=== PATIENT | female | born 1960 | race Caucasian/White ===

== ENCOUNTER 2017-01-17 10:45 | Emergency (ER) | payer SELFPAY ==
[~2017-01-17] VITALS: Ht 170.2 cm; Wt 122.0 kg
[~2017-01-17 10:45] MED LIST: CEPH500C PO; CLIN300C3; CPR500T; FLUC200T45 PO; HCT25T PO; HYDR-3583 PO; LEVO250T7 PO; LISI20TA PO; LNZ600T PO; NITR100C PO; NYST1000 PO; [UNRECOGNIZED DRUG - REMARK]
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
--- NOTE | 2017-01-17 11:46 | Diagnostic Imaging Report ---
EXAMINATION: Pelvis at 11:48 AM. INDICATION: Trauma, pelvic pain. A single AP view of the pelvis was obtained. FINDINGS: There is no fracture, dislocation or acute bony abnormality evident. There is moderate degenerative disease involving the hip and sacroiliac joints. The degenerative changes seem stable when compared to the prior exam of 06/18/2011. However, there does appear to be somewhat greater narrowing of the disc space at L4-5 than on the prior exam. Surgical clips are again seen overlying the right sacrum. The soft tissues are unremarkable. IMPRESSION: 1. There is no evidence for an acute bony abnormality. 2. The degenerative disc and bony disease at L4-5 does appear to have progressed since the prior exam. If further evaluation is desired, then MRI would be recommended. Dictated by: Dictated on workstation # [id number]
--- NOTE | 2017-01-17 11:48 | Diagnostic Imaging Report ---
EXAMINATION: Left ribs INDICATION: Trauma 3 views were obtained. There is no evidence for a displaced rib fracture on the left. There is no sign of an injury to the underlying left lung either. Specifically there is no pneumothorax. IMPRESSION: There is no evidence for a displaced rib fracture on the left. Dictated by: Dictated on workstation # [id number]
[2017-01-17 11:59] VITALS: BP 143/109
== END 2017-01-17 11:58 | disposition home or self-care (01) ==
LOC: EDUNIT# 10:45 → ER 10:47
DX: S30.0XXA Contusion of lower back and pelvis, initial encounter (principal); S80.211A Abrasion, right knee, initial encounter; W55.22XA Struck by cow, initial encounter; Y92.79 Other farm location as the place of occurrence of the external cause; Y99.8 Other external cause status
CPT/HCPCS: 71100; 72170; 99282

== ENCOUNTER → 2020-04-08 | Outpatient (CLI) | payer OTHER ==
[~2020-04-08] VITALS: Ht 172 cm; Wt 131.0 kg
[~2020-04-08] MED LIST changes: +LISI-552 PO; +LOVA20TA2 PO
== END | disposition home or self-care (01) ==
LOC: PREOP 05:57
PROVIDERS: ATTEND Surgery
DX: Z01.818 Encounter for other preprocedural examination (principal)

== ENCOUNTER 2020-04-12 06:02 | Day surgery (SDC) | payer OTHER ==
[~2020-04-12] VITALS: Ht 172 cm; Wt 131.0 kg
[2020-04-12] VITALS (11 sets, daily range): BP systolic 114–133; BP diastolic 60–86
[2020-04-12] MEDS ORDERED: CLINDAMYCIN 600 MG/50 ML IVPB 50 ML IV ONE (06:30)
[2020-04-12] MEDS ORDERED: MIDAZOLAM 2 MG/2 ML (VERSED) VIAL ONE (06:41)
[2020-04-12] MEDS ORDERED: fentaNYL INJECTION 100 MCG/2 ML AMP ONE ×2 (06:41→09:07)
[2020-04-12] MEDS ORDERED: LACTATED RINGERS 1,000 ML IV PRN (06:43)
[2020-04-12] MEDS ORDERED: FAMOTIDINE 20MG/2ML IV (PEPCID) IV ONE (06:45)
[2020-04-12] MEDS ORDERED: SCOPOLAMINE 1.5 MG (TRANSDERM-SCOP) PATCH TOP ONE (06:45)
[2020-04-12] MEDS ORDERED: ONDANSETRON 4 MG/2 ML (SDV) Z0FRAN IV ONE (06:45)
[2020-04-12] MEDS ORDERED: CATHETER FLUSH 10 ML SYR IV PRN (06:45)
[2020-04-12 06:48] LABS: BASOPHILS % (AUTO) 1 % (0-10); EOSINOPHILS # (AUTO) 0.2 10^3/uL (0.0-0.3); EOSINOPHILS % (AUTO) 4 % (0-10); HEMATOCRIT 41 % (35-52); HEMOGLOBIN 13.7 G/DL (11.5-16.0); LYMPHOCYTES # (AUTO) 1.9 X 10^3 (1.0-4.0); LYMPHOCYTES % (AUTO) 29 % (12-44); MEAN CORPUSCULAR HEMOGLOBIN 30 PG (25-34); MEAN CORPUSCULAR HGB CONC 34 G/DL (32-36); MEAN CORPUSCULAR VOLUME 89 FL (80-99); MEAN PLATELET VOLUME 9.6 FL (7.4-10.4); MONOCYTES # (AUTO) 0.6 X 10^3 (0.0-1.0); MONOCYTES % (AUTO) 10 % (0-12); NEUTROPHILS # (AUTO) 3.7 X 10^3 (1.8-7.8); NEUTROPHILS % (AUTO) 57 % (42-75); PLATELET COUNT 278 10^3/uL (130-400); RED CELL DISTRIBUTION WIDTH 13.2 % (10.0-14.5); WHITE BLOOD COUNT 6.4 10^3/uL (4.3-11.0)
[2020-04-12] MEDS: LACTATED RINGERS 1,000 ML IV PRN ×2 (07:04→08:33)
[2020-04-12] MEDS ORDERED: IOPAMIDOL 61% 30 ML (ISOVUE 300) VIAL ONE (07:21)
[2020-04-12] MEDS ORDERED: BUP/EPI 0.5% 1:200,000 (MARCAINE) 10ML VIAL IJ ONE ×2 (07:22→08:47)
--- NOTE | 2020-04-12 07:48 | Progress Note-Pre Operative ---
Pre-Operative Progress Note H&P Reviewed The H&P was reviewed, patient examined and no changes noted. Date Seen by Provider: Apr 12, 2020 Time Seen by Provider: 07:40 Date H&P Reviewed: Apr 12, 2020 Time H&P Reviewed: 07:40 Pre-Operative Diagnosis: symptomatic cholelithiasis TIN HINES DO Apr 12, 2020 07:48
[2020-04-12] MEDS ORDERED: ONDANSETRON 4 MG/2 ML (SDV) Z0FRAN ONE ×2 (08:31)
[2020-04-12] MEDS ORDERED: DESFLURANE (SUPRANE) 15 ML INHAL SOLN ONE ×11 (08:31→10:44)
[2020-04-12] MEDS ORDERED: LIDOCAINE PF 2% 5 ML (XYLOCAINE) VIAL ONE (08:32)
[2020-04-12] MEDS ORDERED: proPOfol 200 MG/20 ML (DIPRIVAN) VIAL IV ONE (08:32)
[2020-04-12] MEDS ORDERED: NEOSTIGMINE 3 MG/3 ML VIAL ONE (08:33)
[2020-04-12] MEDS ORDERED: GLYCOPYRROLATE 0.2 MG/ML (ROBINUL) 2 ML VIAL ONE (08:33)
[2020-04-12] MEDS ORDERED: ROCURONIUM 10 MG/ML 5 ML SYRINGE IV ONE ×2 (08:33→10:27)
[2020-04-12] MEDS ORDERED: DOCU-143 PO (10:47)
[2020-04-12] MEDS ORDERED: HYDR-4226 PO (10:47)
--- NOTE | 2020-04-12 10:48 | Discharge Inst-Simple/Standard ---
Discharge Inst-Standard Discharge Medications New, Converted or Re-Newed RX: RX on Chart Patient Instructions/Follow Up Plan of Care/Instructions/FU: 2-3 weeks Claude Activity as Tolerated: No Discharge Diet: Regular Diet Other Inst to Patient Follow up Appt: Make appointment for 2-3 weeks. Instructions: No lifting greater than 10 pounds. No strenuous activity. May shower in 24 hours, no tub bath or soaking. Use incentive spirometer at home as directed. No Smoking Skin/Wound Care: You have special glue over incision, it will fall off on it's own. Symptoms to Report: Appetite Changes, Extremity Discoloration, Numbness/Tingling, Swelling Increased, Bleeding Excessive, Eyesight Changes, Pain Increased, Urine Color Change, Constipation(Persistent), Fever over 101 degree F, Pain/Pressure in chest, Urinating Difficulty, Cough Up/Vomit Blood, Heart Beat Irreg/Pounding, Pain/Pressure in jaw, Vaginal Bleeding Increase, Cramps in feet or legs, Lightheadedness, Pain/Pressure in shoulder, Diarrhea(Persistent), Memory Changes Suddenly, Questions/Concerns, Weight gain consecutive days, Dizziness/Fainting, Nausea/Vomiting, Shortness of Breath, Weight gain over 2 pounds. If eyes or skin turn yellow notify physician. If questions or concerns contact your physician Or seek help at emergency department. TIN HINES DO Apr 12, 2020 10:48
--- NOTE | 2020-04-12 10:50 | Progress Note-Post Operative ---
Post-Operative Progess Note Surgeon (s)/Film Replacement Orderer (s) Surgeon TIN HINES DO Film Replacement Orderer: Dr. Cerda Pre-Operative Diagnosis symptomatic cholelithiasis Post-Operative Diagnosis intrabdominal adhesions, chronic cholecystitis, cholelithiasis Procedure & Operative Findings Date of Procedure 04/12/20 Procedure Performed/Findings laparoscopic cholecystectomy c ioc Anesthesia Type gen Estimated Blood Loss Estimated blood loss (mL): min Specimens/Packing Specimens Removed gallbladder TIN HINES DO Apr 12, 2020 10:50
[2020-04-12] MEDS ORDERED: fentaNYL INJECTION 100 MCG/2 ML AMP IVP ONE (11:00)
[2020-04-12] MEDS ORDERED: ONDANSETRON 4 MG/2 ML (SDV) Z0FRAN IVP PRN (11:00)
[2020-04-12] MEDS ORDERED: MEPERIDINE (DEMEROL) INJ 50 MG/ML IVP ONE (11:00)
[2020-04-12] MEDS ORDERED: HYDROmorphone 2 MG/ML VIAL (DILAUDID) IV ONE (11:00)
[2020-04-12] MEDS ORDERED: PROMETHAZINE INJ 25 MG/ML (PHENERGAN) AMP IVP ONE (11:00)
[2020-04-12] MEDS ORDERED: HYDROcodone/APAP 5 MG/325 MG (LORTAB) TAB ONE (12:17)
[2020-04-12] MEDS ORDERED: HYDROcodone/APAP 5 MG/325 MG (LORTAB) TAB PO ONE (12:30)
--- NOTE | 2020-04-12 13:08 | Anesthesia-General Post-Op ---
General Patient Condition Mental Status/LOC: Same as Preop Cardiovascular: Satisfactory Nausea/Vomiting: Absent Respiratory: Satisfactory Pain: Controlled Complications: Absent Post Op Complications Complications None Follow Up Care/Instructions Patient Instructions None needed. Anesthesia/Patient Condition Patient Condition Patient is doing well, no complaints, stable vital signs, no apparent adverse anesthesia problems. No complications reported per nursing. ELOISA ARITA CRNA Apr 12, 2020 13:08
--- NOTE | 2020-04-12 16:26 | Diagnostic Imaging Report ---
INDICATION: Fluoroscopy for intraoperative cholangiogram. EXAMINATION: Fluoroscopy was provided in the OR during intraoperative cholangiogram. FINDINGS: 50 seconds of fluoroscopic time was utilized. Images demonstrate contrast being injected via the cystic duct remnant. Contrast is seen within the extrahepatic bile duct as well as intrahepatic bile ducts which are nondilated. No filling defects are seen. There is some extravasation present. Duodenum was not opacified. IMPRESSION: Fluoroscopy during intraoperative cholangiogram. Dictated on workstation # [id number]
--- NOTE | 2020-04-13 09:56 | OPERATIVE REPORT ---
DATE OF SERVICE: 04/12/2020 PREOPERATIVE DIAGNOSIS: Symptomatic cholelithiasis. POSTOPERATIVE DIAGNOSES: Intraabdominal adhesions, chronic cholecystitis, and cholelithiasis. SURGEON: Tin Arce DO SUBMARINE DIVER: Dr. Cerda, assisted in retraction, dissection and closure. PROCEDURE PERFORMED: Laparoscopic cholecystectomy with intraoperative cholangiogram. ANESTHESIA: General. ESTIMATED BLOOD LOSS: Minimal. COMPLICATIONS: None. INDICATIONS: The patient is a 59-year-old female who has been having abdominal pain consistent with gallbladder disease. She had an ultrasound demonstrating cholelithiasis. She understands risks and benefits of procedure and wishes to proceed. Consent was signed in the chart. DESCRIPTION OF PROCEDURE: The patient was taken to the operating suite. She was prepped and draped in sterile fashion. Due to her previous known surgery, the patient had a 12 mm incision made in the left upper quadrant down through subcutaneous tissue. The fascia was opened and the muscle was divided and the posterior sheath was opened and the abdomen was then entered. A 12 mm francisco trocar was inserted and pneumoperitoneum was achieved. The scope was inserted and encountered by multiple intra-abdominal adhesions. Scope was able to be used to bluntly create a window towards the left lower quadrant and a 5 mm trocar was able to be placed under direct visualization of the laparoscope. Using a blunt grasper, multiple adhesions were able to be slowly taken down off the abdominal wall and moved into a more cephalad area of visualization. At the falciform and the subxiphoid area, a window was able to be created, a 5 mm trocar was placed under direct visualization of the laparoscope. There were multiple adhesions up to the liver, which were able to be taken down with cautery scissors and a further work space was also able to be continued to be created using blunt dissection. Two 5 mm trocars were able to be placed in the right upper quadrant. Using these ports, the gallbladder was then able to be identified. There were multiple adhesions to this area and all the adhesions had the gallbladder stuck in this position. The gallbladder was distended as well. The adhesions were then began to be taken down with both blunt dissection along with using Kittners and cautery. The gallbladder was able to be grasped and started to be elevated. This was then continued to be elevated and all adhesions were continued to be taken down trying to get adequate exposure. Visualization was continued to be improved with further dissection. At this point, there were a lot of chronic changes within the gallbladder region and so the gallbladder was taken down from the top to bottom fashion using a hook cautery and blunt dissection and also Kitner dissection. As dissection was continued, the cystic artery was identified. This was clipped on the proximal and distal portion and this was then transected. In retracting, a small laceration of the liver was created, which hemostasis was achieved. This was some gentle pressure. Gallbladder was then continued to be dissected off of the liver bed and a hole was created in the gallbladder drained from the gallbladder and stones. The cystic duct was then identified and unable to be dissected around and a cholangiogram was then performed. Contrast made its way into the duct due to the hole in the gallbladder and there was some leakage, but no stones were identified in the duct; however, did not make its way into the duodenum. It was felt this is most likely just due to inadequate pressure being able to be pushed in to the duct ____. At this time, the catheter was removed. The cystic duct was transected and an Endoloop was placed around this area and secured and cut. Then, hook cautery was then used to dissect the remainder of the gallbladder off the liver bed. I then placed it in an Endobag and removed through the 12 mm trocar site. Copious amounts of irrigation was used and suctioned. Hemostasis was achieved. The trocars were then removed. A 12 mm fascial defect in the left upper quadrant was then closed using #0 Vicryl in a [id number] fashion. Skin was then closed using 4-0 Monocryl in a subcuticular fashion. The areas were then washed and dried and Skin Affix was placed over the incisions. The patient tolerated procedure well without any complications. She was taken to recovery room in stable condition. Job ID: [id number] DocumentID: [id number] Dictated Date: 04/12/2020 21:13:07 Circulation Director Date: 04/13/2020 07:29:45 Dictated By: TIN ARCE DO
[2020-04-15] MEDS ORDERED: DOCU-143 PO (14:42)
[2020-04-15] MEDS ORDERED: HYDR-3812 PO (14:42)
== END 2020-04-12 13:50 | disposition home or self-care (01) ==
LOC: SDC 06:02
PROVIDERS: ATTEND Surgery
DX: K80.10 Calculus of gallbladder with chronic cholecystitis without obstruction (principal); I10 Essential (primary) hypertension; E66.01 Morbid (severe) obesity due to excess calories; Z68.41 Body mass index [BMI] 40.0-44.9, adult; Z79.899 Other long term (current) drug therapy; Z88.0 Allergy status to penicillin; Z90.710 Acquired absence of both cervix and uterus; Z83.3 Family history of diabetes mellitus
CPT/HCPCS: 36415; 76000; 85025; 87081; 88304; 94664

== ENCOUNTER → 2021-12-22 | Outpatient (CLI) | payer OTHER ==
[~2021-12-22] VITALS: Ht 170.2 cm; Wt 129.5 kg
[~2021-12-22] MED LIST changes: +ACHD5005 PO; +ANTI1CAP5 PO; +ATOR20TA66 PO; +BERBERINE; +Berberine; +CEFD300C3 PO; +CRAN1CAP5 PO; +DOCU-143 PO; +HYDR-4226 PO; -LISI-552 PO; +LISI20TA26 PO; +METF-397 PO; +PARS1TAB3 PO
== END | disposition home or self-care (01) ==
LOC: PREOP 05:41
PROVIDERS: ATTEND Specialist
DX: Z01.818 Encounter for other preprocedural examination (principal)

== ENCOUNTER 2021-12-29 09:45 | Day surgery (SDC) | payer OTHER ==
[~2021-12-29] VITALS: Ht 170.2 cm; Wt 129.5 kg
[2021-12-29] MEDS ORDERED: MIDAZOLAM 2 MG/2 ML (VERSED) VIAL ONE (10:11)
[2021-12-29 10:44] VITALS: BP 145/96
[2021-12-29] MEDS ORDERED: TIMOLOL MALEATE 0.5% 5 ML (TIMOPTIC) BTL OU PRN (10:45)
[2021-12-29] MEDS ORDERED: MOXIFLOXACIN OPHTH SOLN 5 MG/ML 0.3 ML SYRINGE OP ONE (10:45)
[2021-12-29] MEDS ORDERED: LIDOCAINE PF 1% 2 ML VIAL IR PRN (10:45)
[2021-12-29] MEDS ORDERED: POVIDONE (BETADINE) OPHTH SOLN 5% 30 ML OP ONE (10:45)
[2021-12-29] MEDS: TETRACAINE 0.5% OPHTH SOLN 4 ML BTL (SINGLE DOSE ONLY) OU PRN ×4 (10:47→11:03)
[2021-12-29] MEDS: PHENYLEPHRINE 10% OPHTH (NEO-SYN) 5 ML BTL OU SCH ×3 (10:53→11:03)
[2021-12-29] MEDS: TROPICAMIDE 1% OPH SOLN (MYDRIACYL) 15 ML BTL OP SCH ×3 (10:53→11:03)
--- NOTE | 2021-12-29 11:35 | Ophthalmologist Pre-Op Note ---
Pre-Operative Progress Note H&P Reviewed The H&P was reviewed, patient examined and no changes noted. Date H&P Reviewed: December 29, 2021 Time H&P Reviewed: 11:35 Pre-Op Dx Cataract, Left Eye LUDIVINA ANTONY MD December 29, 2021 11:35
--- NOTE | 2021-12-29 11:58 | Ophthalmology Operative Report ---
Cataract removal/placement IOL PREOPERATIVE DIAGNOSIS: Cataract Left Eye POSTOPERATIVE DIAGNOSIS: Cataract Left Eye PROCEDURE: Cataract removal and placement of posterior chamber implant, left eye SURGEON: Tony Antony ANESTHESIA: Topical with sedation COMPLICATIONS: None ESTIMATED BLOOD LOSS: Minimal DESCRIPTION OF PROCEDURE: After proper informed consent was obtained, the patient, a 61 female, was taken to the Operating Room and the left eye was anesthetized with tetracaine. The left eye was then prepped and draped in the usual manner. A wire lid speculum was placed. A paracentesis was made at the left hand position. Preservative free lidocaine was injected into the anterior chamber followed by viscoelastic. A clear corneal incision was made in the temporal position. A capsulorrhexis was preformed and the central nuclear and cortical material were removed. The posterior capsule was polished and an Víctor 21.5 AU00T0 was placed into the capsular bag. The residual viscoelastic was aspirated and balanced saline solution was injected into the anterior chamber. Moxifloxacin was injected into the anterior chamber. The wound was checked and found to be water tight. The patient tolerated the procedure well without complications. TONY ANTONY MD December 29, 2021 11:58
[2021-12-29 12:03] VITALS: BP 153/103
--- NOTE | 2021-12-29 13:43 | Anesthesia-General Post-Op ---
MAC Patient Condition Mental Status/LOC: Same as Preop Cardiovascular: Satisfactory Nausea/Vomiting: Absent Respiratory: Satisfactory Pain: Controlled Complications: Absent Post Op Complications Complications None Follow Up Care/Instructions Patient Instructions None needed. Anesthesiology Discharge Order Discharge Order Patient is doing well, no complaints, stable vital signs, no apparent adverse anesthesia problems. No complications reported per nursing. ELOISA ARITA CRNA December 29, 2021 13:43
[2021-12-29] MEDS ORDERED: acetaZOLAMIDE ER 500 MG CAP (DIAMOX SEQUELS) PO ONE (14:00)
== END 2021-12-29 12:07 | disposition home or self-care (01) ==
LOC: SDC 09:45
PROVIDERS: ATTEND Specialist
DX: E11.36 Type 2 diabetes mellitus with diabetic cataract (principal); H25.9 Unspecified age-related cataract; Z79.84 Long term (current) use of oral hypoglycemic drugs
CPT/HCPCS: 82947

== ENCOUNTER 2022-01-02 11:17 | Day surgery (SDC) | payer OTHER ==
[~2022-01-02] VITALS: Ht 170.2 cm; Wt 129.5 kg
[2022-01-02] MEDS: TETRACAINE 0.5% OPHTH SOLN 4 ML BTL (SINGLE DOSE ONLY) OU PRN ×4 (11:24→11:40)
[2022-01-02] MEDS ORDERED: TIMOLOL MALEATE 0.5% 5 ML (TIMOPTIC) BTL OU PRN (11:30)
[2022-01-02] MEDS ORDERED: POVIDONE (BETADINE) OPHTH SOLN 5% 30 ML OP ONE (11:30)
[2022-01-02] MEDS ORDERED: MOXIFLOXACIN OPHTH SOLN 5 MG/ML 0.3 ML SYRINGE OP ONE (11:30)
[2022-01-02] MEDS: PHENYLEPHRINE 10% OPHTH (NEO-SYN) 5 ML BTL OU SCH ×3 (11:30→11:40)
[2022-01-02] MEDS: TROPICAMIDE 1% OPH SOLN (MYDRIACYL) 15 ML BTL OP SCH ×3 (11:30→11:40)
[2022-01-02] MEDS ORDERED: LIDOCAINE PF 1% 2 ML VIAL IR PRN (11:30)
[2022-01-02 11:32] VITALS: BP 143/98
[2022-01-02] MEDS ORDERED: MIDAZOLAM 2 MG/2 ML (VERSED) VIAL ONE (12:05)
--- NOTE | 2022-01-02 12:22 | Ophthalmologist Pre-Op Note ---
Pre-Operative Progress Note H&P Reviewed The H&P was reviewed, patient examined and no changes noted. Date H&P Reviewed: January 02, 2022 Time H&P Reviewed: 12:21 Pre-Op Dx Cataract, Right Eye LUDIVINA ANTONY MD January 02, 2022 12:22
--- NOTE | 2022-01-02 12:44 | Ophthalmology Operative Report ---
Cataract removal/placement IOL PREOPERATIVE DIAGNOSIS: Cataract Right Eye POSTOPERATIVE DIAGNOSIS: Cataract Right Eye PROCEDURE: Cataract removal and placement of posterior chamber implant, right eye SURGEON: Tony Antony ANESTHESIA: Topical with sedation COMPLICATIONS: None ESTIMATED BLOOD LOSS: Minimal DESCRIPTION OF PROCEDURE: After proper informed consent was obtained, the patient, a 61 female, was taken to the Operating Room and the right eye was anesthetized with tetracaine. The right eye was then prepped and draped in the usual manner. A wire lid speculum was placed. A paracentesis was made at the left hand position. Preservative free lidocaine was injected into the anterior chamber followed by viscoelastic. A clear corneal incision was made in the temporal position. A capsulorrhexis was preformed and the central nuclear and cortical material were removed. The posterior capsule was polished and Víctor 21.0 AU00T0 IOL was placed into the capsular bag. The residual viscoelastic was aspirated and balanced saline solution was injected into the anterior chamber. Moxifloxacin was injected into the anterior chamber. The wound was checked and found to be water tight. The patient tolerated the procedure well without complications. TONY ANTONY MD January 02, 2022 12:44
[2022-01-02 12:48] VITALS: BP 130/93
[2022-01-02] MEDS ORDERED: acetaZOLAMIDE ER 500 MG CAP (DIAMOX SEQUELS) PO ONE (13:15)
--- NOTE | 2022-01-02 13:52 | Anesthesia-General Post-Op ---
MAC Patient Condition Mental Status/LOC: Same as Preop Cardiovascular: Satisfactory Nausea/Vomiting: Absent Respiratory: Satisfactory Pain: Controlled Complications: Absent Post Op Complications Complications None Follow Up Care/Instructions Patient Instructions None needed. Anesthesiology Discharge Order Discharge Order Patient is doing well, no complaints, stable vital signs, no apparent adverse anesthesia problems. No complications reported per nursing. HASEEB SUTHERLAND CRNA January 02, 2022 13:52
== END 2022-01-02 12:50 | disposition home or self-care (01) ==
LOC: SDC 11:17
PROVIDERS: ATTEND Specialist
DX: H25.9 Unspecified age-related cataract (principal); E11.36 Type 2 diabetes mellitus with diabetic cataract; Z79.84 Long term (current) use of oral hypoglycemic drugs
CPT/HCPCS: 82947